=== PATIENT | female | born 1955 | race Caucasian/White ===

== ENCOUNTER 2018-04-08 08:55 | Observation (INO) ==
[2018-04-08] MEDS ORDERED: Sod Chloride 0.9% Inj 1,000 ML IV.CONT SCH (09:30)
--- NOTE | 2018-04-08 09:30 | ED ---
HPI General Chief Complaint: Neuro Symptoms/Deficit Stated Complaint: Lt arm weakness x 05:30 am Source: patient Mode of arrival: ambulatory Limitations: no limitations History of Present Illness HPI Narrative: The patient is a 62-year-old female who presents to the emergency department via private vehicle for strokelike symptoms. The patient states she awakened at 4:15 AM, at 4:30 AM she realized that she was walking into objects, left and right side. The patient states she showered in approximately 5 AM she noticed that her left arm felt heavy with limited range of motion. 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 The patient also stated that she felt "cloudy" in the head. The patient returned home and noted that her symptoms had not resolved, therefore, presents to the emergency department. Upon arrival to the emergency department the patient states that the difficulty walking in a straight line and left arm weakness have resolved. The patient did have one prior episode of similar symptoms but denies any known history of stroke or chronic deficits. The patient does have a history of hypertension and states that she is allergic to "all high blood pressure medications ". The patient is followed by her primary physician, Dr. Megan Frazier. The patient does note her symptoms have resolved. Onset (ago): hour(s) Time: 04:30 Location: left arm and ataxia History of same: Yes Severity: moderate Quality: improving Relieving factors: none Exacerbating factors: none Context: sudden onset On Anticoagulants: No Associated symptoms: weakness Treatments Prior to Arrival: none Related Data Home Medications Medication Instructions Recorded Confirmed aspirin [Aspir-Low] 81 mg PO DAILY 04/08/18 04/08/18 diclofenac sodium 75 mg PO BID 04/08/18 04/08/18 ezetimibe [Zetia] 10 mg PO DAILY 04/08/18 04/08/18 Allergies Allergy/AdvReac Type Severity Reaction Status Date / Time No Known Allergies Allergy Unverified 04/08/18 09:03 Review of Systems ROS: all other systems reviewed are negative [facility] Social History Social History Substance History: No History of Abuse Smoking Status: Never smoker How Often Do You Have a Drink Containing Alcohol: 2 to 4 times a month Recent Travel in [facility] within the Last 8 Weeks: No Recent Out of Country Travel within the Last 8 Weeks: No Immunization History Tetanus Immunization: <5 Years Hx Influenza Vaccine This Season: Yes Exam Narrative Exam Narrative: GENERAL: Awake, alert, pleasant 62-year-old female who appears her stated age and is in no acute respiratory distress. SKIN: Focused skin assessment warm/dry. HEAD: Atraumatic. Normocephalic. EYES: Pupils equal and round. The patient is wearing glasses. Pupils are 3 mm bilateral and reactive. EOMs are intact. She is able to count fingers at a distance of 2 feet without difficulty. ENT: No nasal bleeding or discharge. Mucous membranes pink and moist. NECK: Trachea midline. No JVD. CARDIOVASCULAR: Regular rate and rhythm. No murmur appreciated. RESPIRATORY: No accessory muscle use. Clear to auscultation. Breath sounds equal bilaterally. GASTROINTESTINAL: Abdomen soft, non-tender, nondistended. MUSCULOSKELETAL: No obvious deformities. No clubbing. No cyanosis. No edema. NEUROLOGICAL: Awake and alert. No obvious cranial nerve deficits. Motor grossly within normal limits. Normal speech. Nonfocal. Smile is symmetric. Tongue is midline. No dysarthria noted. No drift of the upper or lower extremities. Finger to nose is normal. Heel to solis is normal. Sensation is symmetric on the face, arms, and legs bilaterally. The patient is oriented 4. The patient is able to walk in a straight line, toe to heel, without any obvious ataxia. PSYCHIATRIC: Appropriate mood and affect; insight and judgment normal. Course Initial Documented Vital Signs Temperature 98 F 04/08/18 09:00 Pulse Rate 73 04/08/18 09:00 Respiratory Rate 16 04/08/18 09:00 Blood Pressure 222/99 H 04/08/18 09:00 Pulse Oximetry 97 04/08/18 09:00 Last Documented Vital Signs Temperature 98 F 04/08/18 09:00 Pulse Rate 71 04/08/18 11:02 Respiratory Rate 18 04/08/18 11:02 Blood Pressure 182/86 H 04/08/18 11:02 Pulse Oximetry 96 04/08/18 11:02 NIH Stroke Scale NIH Stroke Scale Level of Consciousness: 0-Alert Orientation Questions: 0-Answers both correct Responds to Commands: 0-Both tasks correct Gaze Eye Movement: 0-Horizontal movement WNL Visual Dunn: 0-No visual field defect Facial Movement: 0-Normal Motor Functions Arm LEFT: 0-No drift Motor Functions Arm RIGHT: 0-No drift Motor Functions Leg LEFT: 0-No drift Motor Functions Leg RIGHT: 0-No drift Limb Ataxia: 0-No ataxia Sensory Loss: 0-No sensory loss Best Language: 0-Normal Articulation: 0-Normal Extinction or Inattention Sensory: 0-Absent Total: 0 Medical Decision Making MDM Narrative Medical decision making narrative: IV was established, labs were drawn and sent , and the patient was placed on cardiac telemetry monitoring and continuous pulse oximetry monitoring. EKG was ordered and interpreted. Stat CT of the brain was obtained. CT the brain was negative. The patient was administered aspirin. The patient's blood pressure did improve to a systolic in the 180s and diastolic in the 80s, therefore, no blood pressure medication was initiated. The patient's symptoms did resolve, patient is not a candidate for TPA. Laboratory evaluation was unremarkable. I discussed the patient with her primary physician, Dr. Megan Frazier, who recommends 23-hour observation to [facility] for initial workup. Therefore, [facility] were paged for 23-hour observation 11:15 AM. Medical Screen Exam Complete: Yes Emergency Medical Condition: Yes Differential Diagnosis Differential Diagnosis: Differential diagnosis includes TIA, transient neurologic deficit, CVA, intracranial hemorrhage, hypertensive urgency, hypertensive emergency, vertigo, labyrinthitis, Mnire's disease. Lab Data Lab results reviewed: Yes I reviewed the patient's lab results. Lab results narrative: Laboratory evaluation is essentially unremarkable. Result diagrams: 04/08/18 09:30 04/08/18 09:30 Lab Results 04/08/18 04/08/18 04/08/18 Range/Units 09:30 09:30 09:30 CBC w Diff Auto diff final WBC 5.2 (4.0-11.0) th/mm3 RBC 4.99 (4.00-5.30) mil/mm3 Hgb 14.6 (11.6-15.3) gm/dL Hct 43.5 (35.0-46.0) % MCV 87.2 (80.0-100.0) fL MCH 29.2 (27.0-34.0) pg MCHC 33.5 (32.0-36.0) % RDW 12.8 (11.6-17.2) % Plt Count 248 (150-450) th/mm3 MPV 7.3 (7.0-11.0) fL Neut % (Auto) 64.1 (16.0-70.0) % Lymph % (Auto) 26.1 (9.0-44.0) % [place] % (Auto) 8.0 (0.0-8.0) % Eos % (Auto) 1.5 (0.0-4.0) % Baso % (Auto) 0.3 (0.0-2.0) % Neut # (Auto) 3.3 (1.8-7.7) th/mm3 Lymph # (Auto) 1.4 (1.0-4.8) th/mm3 Mcdonough # (Auto) 0.4 (0.0-0.9) th/mm3 Eos # (Auto) 0.1 (0.0-0.4) th/mm3 Baso # (Auto) 0.0 (0.0-0.2) th/mm3 WBC Differential . Differential Comment . PT 10.1 (9.8-11.6) sec INR 1.0 Ratio APTT 29.3 (24.3-30.1) sec Sodium 142 (136-145) meq/L Potassium 3.8 (3.5-5.1) meq/L Chloride 104 (98-107) meq/L Carbon Dioxide 27.0 (21.0-32.0) meq/L Anion Gap 11 (5-15) meq/L BUN 17 (7-18) mg/dL Creatinine 0.77 (0.50-1.00) mg/dL Estimated GFR 76 L (>89) mL/min POC Glucose (68-110) mg/dl Random Glucose 94 (74-106) mg/dL Calcium 9.1 (8.5-10.1) mg/dL Total Bilirubin 0.3 (0.2-1.0) mg/dL AST 55 H (15-37) U/L ALT 36 (10-53) U/L Alkaline Phosphatase 88 (45-117) U/L Total Creatine Kinase 1408 H (26-192) U/L CK-MB (CK-2) 16.8 H (0.5-3.6) ng/mL CK-MB (CK-2) % 1.2 (0.0-4.0) % Troponin I Less than 0.02 L (0.02-0.05) ng/mL Total Protein 7.8 (6.4-8.2) g/dL Albumin 4.2 (3.4-5.0) g/dL Urine Color (Yellw/Straw) Urine Clarity (Clear) Urine pH (5.0-8.5) Ur Specific [place] (1.002-1.035) Urine Protein (Neg-Trace) mg/dL Urine Glucose (UA) (Negative) mg/dL Urine Ketones (Negative) mg/dL Urine Occult Blood (Negative) Urine Nitrate (Negative) Urine Bilirubin (Negative) Urine Urobilinogen (Less than 2) mg/dL Ur Leukocyte Esterase (Negative) 04/08/18 04/08/18 Range/Units 09:45 10:00 CBC w Diff WBC (4.0-11.0) th/mm3 RBC (4.00-5.30) mil/mm3 Hgb (11.6-15.3) gm/dL Hct (35.0-46.0) % MCV (80.0-100.0) fL MCH (27.0-34.0) pg MCHC (32.0-36.0) % RDW (11.6-17.2) % Plt Count (150-450) th/mm3 MPV (7.0-11.0) fL Neut % (Auto) (16.0-70.0) % Lymph % (Auto) (9.0-44.0) % Mcdonough % (Auto) (0.0-8.0) % Eos % (Auto) (0.0-4.0) % Baso % (Auto) (0.0-2.0) % Neut # (Auto) (1.8-7.7) th/mm3 Lymph # (Auto) (1.0-4.8) th/mm3 [place]cd[place]ough # (Auto) (0.0-0.9) th/mm3 Eos # (Auto) (0.0-0.4) th/mm3 Baso # (Auto) (0.0-0.2) th/mm3 WBC Differential Differential Comment PT (9.8-11.6) sec INR Ratio APTT (24.3-30.1) sec Sodium (136-145) meq/L Potassium (3.5-5.1) meq/L Chloride (98-107) meq/L Carbon Dioxide (21.0-32.0) meq/L Anion Gap (5-15) meq/L BUN (7-18) mg/dL Creatinine (0.50-1.00) mg/dL Estimated GFR (>89) mL/min POC Glucose 97 (68-110) mg/dl Random Glucose (74-106) mg/dL Calcium (8.5-10.1) mg/dL Total Bilirubin (0.2-1.0) mg/dL AST (15-37) U/L ALT (10-53) U/L Alkaline Phosphatase (45-117) U/L Total Creatine Kinase (26-192) U/L CK-MB (CK-2) (0.5-3.6) ng/mL CK-MB (CK-2) % (0.0-4.0) % Troponin I (0.02-0.05) ng/mL Total Protein (6.4-8.2) g/dL Albumin (3.4-5.0) g/dL Urine Color Yellow (Yellw/Straw) Urine Clarity Clear (Clear) Urine pH 6.0 (5.0-8.5) Ur Specific [place] 1.010 (1.002-1.035) Urine Protein Negative (Neg-Trace) mg/dL Urine Glucose (UA) Negative (Negative) mg/dL Urine Ketones Negative (Negative) mg/dL Urine Occult Blood Negative (Negative) Urine Nitrate Negative (Negative) Urine Bilirubin Negative (Negative) Urine Urobilinogen 0.2 (Less than 2) mg/dL Ur Leukocyte Esterase Negative (Negative) Imaging Data Radiologist's impression: Head CT 04/08/18 09:24 CONCLUSION: 1. Negative CT Head non contrast. . ECG Data EKG Prior to Arrival: No Attestation: I personally reviewed and interpreted this ECG as follows: Interpretation: EKG reveals normal sinus rhythm with a rate of 72. RSR prime in V1 with a QRS of 109 ms, incomplete right bundle branch block. Discharge Plan Discharge Disposition Patient Disposition: 30 Still Patient Discharge Condition Condition: Stable Discharge Details Diagnosis: Transient cerebral ischemia Physicians Team ED Provider: Sumit Garrison Primary Care Provider: Megan Frazier Rxs /Orders / Referrals /Forms Prescriptions: No Action aspirin [Aspir-Low] 81 mg Tablet,Delayed Release (Dr/Ec) 81 mg PO DAILY RF: 0 diclofenac sodium 75 mg Tablet,Delayed Release (Dr/Ec) 75 mg PO BID RF: 0 ezetimibe [Zetia] 10 mg Tablet 10 mg PO DAILY RF: 0 Discharge Interventions Interventions: Vital Signs Last Done: 04/08/18 11:02 Status ED Status: Pending Admission
[2018-04-08 09:46] LABS: Baso % (Auto) 0.3 % (0.0-2.0); Eos # (Auto) 0.1 th/mm3 (0.0-0.4); Eos % (Auto) 1.5 % (0.0-4.0); Hematocrit 43.5 % (35.0-46.0); Hemoglobin 14.6 gm/dL (11.6-15.3); Lymph # (Auto) 1.4 th/mm3 (1.0-4.8); Lymph % (Auto) 26.1 % (9.0-44.0); Mean Corpuscular HGB Conc 33.5 % (32.0-36.0); Mean Corpuscular Hemoglobin 29.2 pg (27.0-34.0); Mean Corpuscular Volume 87.2 fL (80.0-100.0); Mean Platelet Volume 7.3 fL (7.0-11.0); Mono # (Auto) 0.4 th/mm3 (0.0-0.9); Neut # (Auto) 3.3 th/mm3 (1.8-7.7); Neut % (Auto) 64.1 % (16.0-70.0); Platelet Count 248 th/mm3 (150-450); Red Blood Count 4.99 mil/mm3 (4.00-5.30); Red Cell Distribution Width 12.8 % (11.6-17.2); White Blood Count 5.2 th/mm3 (4.0-11.0)
[2018-04-08 09:57] LABS: Albumin 4.2 g/dL (3.4-5.0); Anion Gap 11 meq/L (5-15); Calcium 9.1 mg/dL (8.5-10.1); Chloride 104 meq/L (98-107); Potassium 3.8 meq/L (3.5-5.1); Sodium 142 meq/L (136-145)
[2018-04-08 09:58] LABS: Blood Urea Nitrogen 17 mg/dL (7-18); Glucose,Random 94 mg/dL (74-106)
[2018-04-08 09:59] LABS: Activated Partial Thrombo Time 29.3 sec (24.3-30.1); Prothrombin Time 10.1 sec (9.8-11.6)
[2018-04-08 10:01] LABS: Alanine Aminotransferase 36 U/L (10-53); Aspartate Aminotransferase 55 U/L (15-37); Glomerular Filtration Rate 76 mL/min (>89)
[2018-04-08 10:02] LABS: Total Protein 7.8 g/dL (6.4-8.2)
[2018-04-08 10:03] LABS: Alkaline Phosphatase 88 U/L (45-117)
[2018-04-08 10:03] LABS: Bilirubin,Urine Negative (Negative); Clarity,Urine Clear (Clear); Color,Urine Yellow (Yellw/Straw); Glucose,Urine (UA) Negative (Negative); Leukocyte Esterase,Urine Negative (Negative); Nitrite,Urine Negative (Negative); Urobilinogen,Urine 0.2 mg/dL (Less than 2)
[2018-04-08 10:15] LABS: Creatine Kinase 1408 U/L (26-192)
[2018-04-08 10:27] LABS: CKMB Percent 1.2 % (0.0-4.0); Creatine Kinase MB 16.8 ng/mL (0.5-3.6)
[2018-04-08] MEDS ORDERED: Dextrose 50% in Water 50 ML Vial IV.PUSH PRN (11:32)
[2018-04-08] MEDS ORDERED: Labetalol HCl Inj 100 MG/20 ML Vial IV.PUSH PRN (11:32)
[2018-04-08] MEDS: Insulin NovoLOG Aspart Correctional Sugar Inj SQ SCH ×3 (11:56→22:11)
[2018-04-08] MEDS: Sod Chloride 0.9% Inj 1,000 ML IV.CONT SCH (11:56)
[2018-04-08] MEDS ORDERED: Insulin NovoLOG Aspart Correctional Sugar Inj SQ SCH (12:00)
[2018-04-08 12:18] LABS: Squamous Epithelial Cell,Urine 0-5 /hpf (0-5); WBC,Urine 0-5 /hpf (0-5)
--- NOTE | 2018-04-08 17:50 | ECG ---
Date Performed: 04/08/2018 Time Performed: 09:41:57 PTAGE: 62 years EKG: Sinus rhythm POSSIBLE LEFT ATRIAL ENLARGEMENT INCOMPLETE RIGHT BUNDLE BRANCH BLOCK When compared to previous trac ing, the RsR prime is more Pronounced, and also seen in V2, likely secondary to lead Placement. Since previous tracing, no significant change noted BORDERLINE ECG PREVIOUS TRACING : 06/17/2013 13.30 DOCTOR: Martina Hightower Interpretating Date/Time 04/08/2018 17:46:46
[2018-04-09] MEDS: Sod Chloride 0.9% Inj 1,000 ML IV.CONT SCH ×2 (03:49→17:43)
[2018-04-09 07:03] LABS: CKMB Percent 1.2 % (0.0-4.0)
[2018-04-09] MEDS: Insulin NovoLOG Aspart Correctional Sugar Inj SQ SCH ×4 (09:11→22:04)
[2018-04-09 10:46] LABS: Chol/HDL Ratio 4.93 Ratio
--- NOTE | 2018-04-09 12:07 | ECHRPT ---
Indication: CVA/TIA CONCLUSIONS Technically difficult study. In limited views, the left ventricular systolic function is low normal with an estimated ejection fr action in the range of 50-55%. Trace mitral valve regurgitation. There is trace tricuspid valve regurgitation. BP: / HR: Rhythm: Sinus MEASUREMENTS (Male / Female) Normal Values Technical Quality:Technically difficult study 2D ECHO LV Diastolic Diameter PLAX 3.5 cm 4.2 - 5.9 / 3.9 - 5.3 cm LV Systolic Diameter PLAX 2.7 cm IVS Diastolic Thickness 0.7 cm 0.6 - 1.0 / 0.6 - 0.9 cm LVPW Diastolic Thickness 0.7 cm 0.6 - 1.0 / 0.6 - 0.9 cm LV Relative Wall Thickness 0.4 LVOT Diameter 1.9 cm M-MODE Aortic Root Diameter MM 2.3 cm LA Systolic Diameter MM 3.3 cm LA Ao Ratio MM 1.4 AV Cusp Separation MM 1.6 cm DOPPLER AV Peak Velocity 128.0 cm/s AV Peak Gradient 6.6 mmHg LVOT Peak Velocity 114.0 cm/s LVOT Peak Gradient 5.2 mmHg AV Area Cont Eq pk 2.5 cm MR Peak Velocity 255.0 cm/s MR Peak Gradient 26.0 mmHg Mitral E Point Velocity 79.5 cm/s Mitral A Point Velocity 94.3 cm/s Mitral E to A Ratio 0.8 LV E' Lateral Velocity 7.3 cm/s Mitral E to LV E' Lateral Ratio 10.9 LV E' Septal Velocity 6.4 cm/s Mitral E to LV E' Septal Ratio 12.4 TR Peak Velocity 220.0 cm/s TR Peak Gradient 19.4 mmHg Right Atrial Pressure 10.0 mmHg Pulmonary Artery Systolic Pressu 29.4 mmHg Right Ventricular Systolic Press 29.4 mmHg PV Peak Velocity 99.1 cm/s PV Peak Gradient 3.9 mmHg FINDINGS LEFT VENTRICLE In limited views, the left ventricular systolic function is low normal with an estimated ejection fr action in the range of 50-55%. Wall thickness is normal. Normal left ventricular size. RIGHT VENTRICLE Grossly normal LEFT ATRIUM The left atrium was not well visualized. RIGHT ATRIUM The right atrium is not well visualized. ATRIAL SEPTUM Normal atrial septal thickness AORTA The aortic root and proximal ascending aorta are not well visualized. MITRAL VALVE Grossly normal Trace mitral valve regurgitation. Mild mitral annular calcification. AORTIC VALVE Grossly normal No aortic valve stenosis or regurgitation. TRICUSPID VALVE Grossly normal There is trace tricuspid valve regurgitation. The estimated pulmonary arterial pressure is 29.4 mmHg. PULMONARY VALVE No pulmonary valve regurgitation or stenosis. Shamir Chase DO (Electronically Signed) Final Date:09 April 2018 12:06
[2018-04-09 12:15] LABS: Hemoglobin A1c 5.8 % (4.3-6.0)
[2018-04-10] MEDS: Insulin NovoLOG Aspart Correctional Sugar Inj SQ SCH (08:40)
[2018-04-10] MEDS ORDERED: hydroCHLOROthiazide 25 MG Tablet PO ONE (09:00)
== END 2018-04-10 08:58 | disposition home or self-care (01) ==
LOC: PHEDA 08:55 → PHED 08:55 → PH3 12:23
PROVIDERS: ADMIT Internal Medicine; ATTEND Internal Medicine